=== PATIENT | female | born 1955 | race Caucasian/White ===

== ENCOUNTER → 2023-04-24 11:44 | Outpatient (REF) | payer MEDICARE, BC, SELFPAY | LOC: HWRAD 11:44 | PROVIDERS: ATTENDING PHYSICIAN Family Medicine | DX: J20.9 Acute bronchitis, unspecified (principal); Z87.891 Personal history of nicotine dependence; R05.3 Chronic cough | CPT/HCPCS: 71260; Q9967 ==

== ENCOUNTER → 2023-10-22 06:16 | Outpatient (REF) | payer MEDICARE, BC, SELFPAY | LOC: HWWDC 06:16 | PROVIDERS: ATTENDING PHYSICIAN Specialist; FAMILY PHYSICIAN Family Medicine | DX: Z12.31 Encounter for screening mammogram for malignant neoplasm of breast (principal) | CPT/HCPCS: 77063; 77067 ==

== ENCOUNTER → 2024-10-31 07:01 | Outpatient (REF) | payer MEDICARE, BC, SELFPAY | LOC: HWWDC 07:01 | PROVIDERS: ATTENDING PHYSICIAN Specialist; FAMILY PHYSICIAN Family Medicine | DX: Z12.31 Encounter for screening mammogram for malignant neoplasm of breast (principal) | CPT/HCPCS: 77063; 77067 ==

== ENCOUNTER → 2024-11-10 09:58 | Outpatient (REF) | payer MEDICARE, BC, SELFPAY | LOC: HWRAD 09:58 | PROVIDERS: ATTENDING PHYSICIAN Specialist; FAMILY PHYSICIAN Family Medicine | DX: M85.89 Other specified disorders of bone density and structure, multiple sites (principal) | CPT/HCPCS: 77080 ==

== ENCOUNTER → 2024-12-08 08:19 | Outpatient (REF) | payer MEDICARE, BC, SELFPAY | LOC: HWRCS 08:19 | PROVIDERS: ATTENDING PHYSICIAN Internal Medicine; FAMILY PHYSICIAN Family Medicine | DX: R07.9 Chest pain, unspecified (principal); R00.2 Palpitations; I34.1 Nonrheumatic mitral (valve) prolapse | CPT/HCPCS: 93306 ==

== ENCOUNTER → 2024-12-23 08:25 | Outpatient (REF) | payer MEDICARE, BC, SELFPAY | LOC: HWRCS 08:25 | PROVIDERS: ATTENDING PHYSICIAN Internal Medicine; FAMILY PHYSICIAN Family Medicine | DX: R07.9 Chest pain, unspecified (principal); R00.2 Palpitations; I34.1 Nonrheumatic mitral (valve) prolapse | CPT/HCPCS: 78452; 93017; A9500 ==